=== PATIENT | female | born 1960 | race Two or more races ===

== ENCOUNTER 2017-09-10 09:33 | Outpatient (CLI) | payer OTHER | END 2017-09-10 19:50 | disposition home or self-care (01) | LOC: LAB 09:33 | DX: R74.0 Nonspecific elevation of levels of transaminase and lactic acid dehydrogenase [LDH] (principal) ==

== ENCOUNTER 2017-09-17 10:21 | Outpatient (CLI) | payer OTHER | END 2017-09-17 10:24 | disposition home or self-care (01) | LOC: MAMO-SONO 10:21 | DX: Z85.3 Personal history of malignant neoplasm of breast (principal) ==

== ENCOUNTER 2018-09-11 08:59 | Outpatient (CLI) | payer OTHER | END 2018-09-11 09:02 | disposition home or self-care (01) | LOC: TOM 08:59 | DX: K66.0 Peritoneal adhesions (postprocedural) (postinfection) (principal); K76.0 Fatty (change of) liver, not elsewhere classified; R10.10 Upper abdominal pain, unspecified; E04.8 Other specified nontoxic goiter ==

== ENCOUNTER → 2018-09-18 | Outpatient (CLI) | payer OTHER | END | disposition home or self-care (01) | LOC: MAMO-SONO 14:45 | DX: D24.1 Benign neoplasm of right breast (principal); Z12.31 Encounter for screening mammogram for malignant neoplasm of breast ==

== ENCOUNTER → 2018-09-18 | Outpatient (CLI) | payer OTHER | END | disposition home or self-care (01) | LOC: NUCLEAR 13:30 | DX: M81.0 Age-related osteoporosis without current pathological fracture (principal) ==

== ENCOUNTER 2019-10-01 06:38 | Outpatient (CLI) | payer OTHER | END 2019-10-01 06:47 | disposition home or self-care (01) | LOC: EDBD 06:38 → LAB 06:38 | PROVIDERS: ATTEND Internal Medicine Hematology & Oncology | DX: D64.89 Other specified anemias (principal); R74.0 Nonspecific elevation of levels of transaminase and lactic acid dehydrogenase [LDH]; E78.00 Pure hypercholesterolemia, unspecified; C50.411 Malignant neoplasm of upper-outer quadrant of right female breast ==

== ENCOUNTER 2019-10-01 07:32 | Outpatient (CLI) | payer OTHER | END 2019-10-01 07:43 | disposition home or self-care (01) | LOC: MAMO-SONO 07:32 → EDBD 08:45 → MAMO-SONO 08:45 | PROVIDERS: ATTEND General Practice | DX: Z12.31 Encounter for screening mammogram for malignant neoplasm of breast (principal); D24.1 Benign neoplasm of right breast; Z80.3 Family history of malignant neoplasm of breast ==

== ENCOUNTER 2019-11-14 07:54 | Outpatient (CLI) | payer OTHER | END 2019-11-14 15:00 | disposition home or self-care (01) | LOC: LAB 07:54 | PROVIDERS: ATTEND Internal Medicine Endocrinology, Diabetes & Metabolism | DX: E03.8 Other specified hypothyroidism (principal) ==

== ENCOUNTER → 2020-01-08 14:34 | Outpatient (CLI) | payer OTHER | END | disposition home or self-care (01) | LOC: LAB 14:34 | PROVIDERS: ATTEND Obstetrics & Gynecology | DX: N39.0 Urinary tract infection, site not specified (principal) ==

== ENCOUNTER 2020-05-10 16:07 | Outpatient (CLI) | payer OTHER | END 2020-05-10 16:23 | disposition HB | LOC: RAD 16:07 | DX: M41.86 Other forms of scoliosis, lumbar region (principal); M54.5 Low back pain ==

== ENCOUNTER 2020-10-19 14:40 | Outpatient (CLI) | payer OTHER | END 2020-10-19 14:52 | disposition home or self-care (01) | LOC: NUCLEAR 14:40 | PROVIDERS: ATTEND Internal Medicine Endocrinology, Diabetes & Metabolism | DX: M81.0 Age-related osteoporosis without current pathological fracture (principal) ==

== ENCOUNTER → 2020-10-20 | Outpatient (CLI) | payer OTHER | END | disposition home or self-care (01) | LOC: MAMO-SONO 10:37 | PROVIDERS: ATTEND Specialist | DX: N60.11 Diffuse cystic mastopathy of right breast (principal); D24.1 Benign neoplasm of right breast; Z80.3 Family history of malignant neoplasm of breast ==

== ENCOUNTER 2021-05-11 08:33 | Outpatient (CLI) | payer OTHER | END 2021-05-11 08:34 | disposition home or self-care (01) | LOC: SONOGRAMA 08:33 | PROVIDERS: ATTEND Internal Medicine Endocrinology, Diabetes & Metabolism | DX: E04.8 Other specified nontoxic goiter (principal) ==

== ENCOUNTER 2021-06-21 09:04 | Outpatient (CLI) | payer OTHER | END 2021-06-21 09:06 | disposition home or self-care (01) | LOC: LAB 09:04 | PROVIDERS: ATTEND Internal Medicine Hematology & Oncology | DX: D64.9 Anemia, unspecified (principal); R74.9 Abnormal serum enzyme level, unspecified; K76.9 Liver disease, unspecified; E78.5 Hyperlipidemia, unspecified; E03.8 Other specified hypothyroidism; M81.8 Other osteoporosis without current pathological fracture; N60.21 Fibroadenosis of right breast; N60.11 Diffuse cystic mastopathy of right breast; N60.12 Diffuse cystic mastopathy of left breast; D24.1 Benign neoplasm of right breast; Z80.3 Family history of malignant neoplasm of breast; Z80.0 Family history of malignant neoplasm of digestive organs; C50.411 Malignant neoplasm of upper-outer quadrant of right female breast ==

== ENCOUNTER → 2021-11-01 | Outpatient (CLI) | payer OTHER | END | disposition home or self-care (01) | LOC: MAMO-SONO 09:09 | PROVIDERS: ATTEND Specialist | DX: D24.1 Benign neoplasm of right breast (principal); Z80.3 Family history of malignant neoplasm of breast ==

== ENCOUNTER 2022-10-11 22:01 | Emergency (ER) | payer OTHER ==
[~2022-10-11] VITALS: Ht 149.9 cm; Wt 63.5 kg
[2022-10-11] MEDS ORDERED: SYNTHROID100 MCG PO (22:24)
[2022-10-11] MEDS ORDERED: VITAMIN D3250 MCG PO (22:24)
[2022-10-11] MEDS ORDERED: ALENDRONATE SOD70 MG PO (22:25)
[2022-10-11] MEDS ORDERED: DAFLONEX-XL 11300 MG PO (22:25)
[2022-10-11] MEDS ORDERED: NORVASC2.5 M1 PO (22:25)
[2022-10-11] MEDS ORDERED: GEMFIBROZIL600 MG PO (22:25)
== END 2022-10-12 02:57 ==
LOC: ER 22:01
DX: R55 Syncope and collapse (principal)

== ENCOUNTER 2022-11-02 13:16 | Outpatient (CLI) | payer OTHER | END 2022-11-02 13:17 | disposition home or self-care (01) | LOC: NUCLEAR 13:16 | PROVIDERS: ATTEND Internal Medicine Endocrinology, Diabetes & Metabolism | DX: M81.0 Age-related osteoporosis without current pathological fracture (principal) ==

== ENCOUNTER → 2022-11-02 | Outpatient (CLI) | payer OTHER ==
[~2022-11-02] MED LIST: ALENDRONATE SOD70 MG PO; DAFLONEX-XL 11300 MG PO; GEMFIBROZIL600 MG PO; NORVASC2.5 M1 PO; SYNTHROID100 MCG PO; VITAMIN D3250 MCG PO
== END | disposition home or self-care (01) ==
LOC: MAMO-SONO 11:12
PROVIDERS: ATTEND Specialist
DX: Z80.3 Family history of malignant neoplasm of breast (principal)

== ENCOUNTER 2022-12-21 11:46 | Outpatient (CLI) | payer OTHER | END 2022-12-21 11:58 | disposition home or self-care (01) | LOC: SONOGRAMA 11:46 | PROVIDERS: ATTEND Internal Medicine Endocrinology, Diabetes & Metabolism | DX: E04.8 Other specified nontoxic goiter (principal) ==

== ENCOUNTER 2023-11-15 10:09 | Outpatient (CLI) | payer OTHER | END 2023-11-15 10:24 | disposition home or self-care (01) | LOC: MAMO-SONO 10:09 | PROVIDERS: ATTEND Specialist | DX: D24.1 Benign neoplasm of right breast (principal); Z80.3 Family history of malignant neoplasm of breast ==

== ENCOUNTER 2024-05-02 10:46 | Outpatient (CLI) | payer OTHER | END 2024-05-02 10:58 | disposition home or self-care (01) | LOC: MRI 10:46 | PROVIDERS: ATTEND Neuromusculoskeletal Medicine & OMM | DX: M51.26 Other intervertebral disc displacement, lumbar region (principal); M51.360 Other intervertebral disc degeneration, lumbar region with discogenic back pain only | CPT/HCPCS: 72148 ==

== ENCOUNTER 2024-11-26 10:12 | Outpatient (CLI) | payer OTHER | END 2024-11-26 10:14 | disposition home or self-care (01) | LOC: MAMO-SONO 10:12 | PROVIDERS: ATTEND Specialist | DX: D24.1 Benign neoplasm of right breast (principal); Z80.3 Family history of malignant neoplasm of breast ==

== ENCOUNTER 2024-12-18 09:03 | Outpatient (CLI) | payer OTHER | END 2024-12-18 09:15 | disposition home or self-care (01) | LOC: TOM 09:03 | PROVIDERS: ATTEND Radiology Vascular & Interventional Radiology | DX: I60.9 Nontraumatic subarachnoid hemorrhage, unspecified (principal) | CPT/HCPCS: 70496 ==

== ENCOUNTER 2025-01-22 13:23 | Outpatient (CLI) | payer OTHER | END 2025-01-22 13:26 | disposition home or self-care (01) | LOC: TOM 13:23 | DX: R10.2 Pelvic and perineal pain (principal); R10.12 Left upper quadrant pain ==